=== PATIENT | female | born 1990 | race Caucasian/White ===

== ENCOUNTER 2023-06-22 04:52 | Emergency (ER) | payer SELFPAY ==
[2023-06-22 04:53] VITALS: BP 149/80; PULSE 105; RESP 16; TEMP 37.5; O2SAT 93; BMI 48.2
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
[2023-06-22 06:06] LABS: Basophils % 0.3 %; Eosinophils # 0.2 10^3/uL (0.0-0.8); Eosinophils % 1.5 %; Hematocrit 39.4 % (36-47); Lymphocytes # 1.2 10^3/uL (0.8-4.8); Lymphocytes % 10.7 %; Mean Corpuscular Hemoglobin 28.1 pg (27-33); Mean Corpuscular Volume 87.8 fl (85-98); Mean Platelet Volume 10.9 fL (7.4-10.4); Monocytes # 0.5 10^3/uL (0.2-0.9); Monocytes % 4.1 %; Neutrophils % 83.1 %; Nucleated Red Blood Cells % 0 %; Platelet Count 223 10^3/cmm (157-399); Red Blood Count 4.49 10^6/uL (3.85-5.65); Red Cell Distribution Width 13.2 % (12.1-15.1); White Blood Count 11.56 10^3/uL (3.29-11.43)
[2023-06-22] MEDS: iohexol 350 mg/mL 500 mL Btl (per mL) IV (06:23)
[2023-06-22 06:30] VITALS: BP 119/93; PULSE 108; RESP 20; O2SAT 100
[2023-06-22] MEDS: tetanus-dipt-pertussis 0.5 mL SDV IM (06:31)
[2023-06-22 06:44] LABS: Alanine Aminotransferase 20 U/L (0-33); Albumin Level 4.1 g/dL (3.5-5.2); Alkaline Phosphatase 94 U/L (35-105); Anion Gap 14.6 (5-19); Aspartate Amino Transferase 20 U/L (0-32); Blood Urea Nitrogen 13 mg/dL (6-20); Calcium 8.9 mg/dL (8.5-10.5); Carbon Dioxide 22 mmol/L (22-29); Chloride 105 mmol/L (98-107); Creatinine Clr Calc Pharmacy 187.9021; Globulin 3.2 g/dL (1.3-4.6); Glomerular Filtration Rate 117.4 mL/min (90-130); Glucose 116 mg/dL (65-115); Osmolality Calculated 287 mOsm/kg (285-295); Potassium 3.6 mmol/L (3.5-5.1); Sodium 138 mmol/L (136-145); Total Bilirubin 0.3 mg/dL (0.15-1.2); Total Protein 7.3 g/dL (6.6-8.7)
[2023-06-22] MEDS: ondansetron 2 mg/ML SDV 2 mL 8 MG IVP (07:11)
[2023-06-22] MEDS: lidocaine 1% INJ 10 mL (per mL) INTRADERMA (07:11)
[2023-06-22] MEDS: lidocaine-epi 1% 20 mL INJ INJECTION (07:11)
[2023-06-22] MEDS: LORazepam 2 mg/mL INJ 10 mL MDV 1 MG IVP ×2 (07:20→07:42)
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
[2023-06-22] MEDS: neomycin-poly-bacitracin oint 0.9 gm Pkt 1 APPLIC TOPICAL (08:15)
[2023-06-22 08:30] VITALS: BP 131/95; PULSE 108; O2SAT 99
[2023-06-22 12:03] VITALS: BP 135/99; PULSE 106; O2SAT 99
== END 2023-06-22 12:05 | disposition home or self-care (01) ==
PROVIDERS: Emergency Provider Internal Medicine
DX: S01.82XA Laceration with foreign body of other part of head, initial encounter (principal); S41.122A Laceration with foreign body of left upper arm, initial encounter; S30.1XXA Contusion of abdominal wall, initial encounter; F41.9 Anxiety disorder, unspecified; V57.5XXA Driver of pick-up truck or van injured in collision with fixed or stationary object in traffic accident, initial encounter; Z23 Encounter for immunization
CPT/HCPCS: 12035; 12052; 70450; 71260; 72125; 74177; 80053; 85025; 90471; 90715; 96374; 96375; 99285; J2060; J2405; Q9967